=== PATIENT | female | born 1985 | race African-American/Black ===

== ENCOUNTER 2018-11-04 00:12 | Emergency (ER) | payer SELFPAY ==
[~2018-11-04] VITALS: Ht 144.8 cm; Wt 47.7 kg
[~2018-11-04 00:12] MED LIST: EZFE 200200 MG PO; FOLATE0.4 MG PO; IBUPROFEN600 MG PO; PERCOCET 10/3251 TA1 PO; PRENATAL COMPLE1 TAB PO; STOOL SOFTENER250 MG PO
[2018-11-04 00:14] VITALS: Ht 144.8 cm; Wt 47.7 kg
[2018-11-04 00:46] LABS: APPEARANCE CLEAR (CLEAR); BILIRUBIN NEGATIVE (NEGATIVE); COLOR YELLOW (YELLOW); GLUCOSE 100 mg/dL (NEGATIVE); KETONE NEGATIVE (NEGATIVE); NITRITE NEGATIVE (NEGATIVE); PROTEIN NEGATIVE (NEGATIVE); SPECIFIC GRAVITY 1.015 (1.005-1.020); UROBILINOGEN NORMAL (NORMAL)
[2018-11-04 00:49] LABS: BACTERIA NONE SEEN /hpf (NONE SEEN); EPITHELIAL CELLS 0-5 /hpf (0-5); WHITE CELLS - URINE NSEEN /hpf (0-5)
[2018-11-04 00:51] LABS: HEMATOCRIT 36.3 % (36.0-48.0); HEMOGLOBIN 11.6 g/dL (12-16); LYMPHOCYTES 34.4 % (15-50); MCH 25.2 pg (26.0-34.0); MCV 78.7 fL (80.0-100.0); MEAN PLATELET VOLUME 8.4 fL (7.4-10.4); NEUTROPHILS 55.8 % (40-80); PLATELET COUNT 286 10x3/uL (130-400); RBC 4.61 10x6/uL (4.00-5.40); RDW 17.4 % (11.5-14.5); WBC 4.1 10x3/uL (4.8-10.8)
[2018-11-04 01:12] LABS: ALBUMIN 3.8 g/dL (3.4-5.0); ALKALINE PHOSPHATASE 80 U/L (46-116); ALT (SGPT) 24 U/L (10-68); BILIRUBIN - TOTAL 0.25 mg/dL (0.2-1.3); CALC OSMOLALITY 282 mosm/kg (275-300); CALCIUM 8.4 mg/dL (8.5-10.1); CARBON DIOXIDE 23.2 mmol/L (21.0-32.0); CHLORIDE - SERUM 103 mmol/L (98-107); CREATININE - SERUM 0.7 mg/dL (0.6-1.3); HCG - QUANTITATIVE (MATERNAL) 1 mIU/mL; POTASSIUM - SERUM 3.7 mmol/L (3.5-5.1); PROTEIN - SERUM 7.5 g/dL (6.4-8.2); SODIUM 140 mmol/L (136-145); UREA NITROGEN 12 mg/dL (7-18); eGFR NON AFRICAN AMERICAN > 90 mL/min (90-120)
[2018-11-04 01:13] LABS: GLUCOSE 175 mg/dL (74-106)
[2018-11-04 01:58] VITALS: BP 110/75
== END 2018-11-04 01:58 | disposition home or self-care (01) ==
LOC: D.ER 00:12
PROVIDERS: Family Medicine
DX: F20.9 Schizophrenia, unspecified (principal); F22 Delusional disorders